=== PATIENT | male | born 1980 | race African-American/Black ===

== ENCOUNTER 2016-03-22 23:38 | Emergency (ER) | payer OTHER ==
[~2016-03-22] VITALS: Ht 170.2 cm; Wt 68.2 kg
[2016-03-22 23:47] VITALS: TEMP 100.4
[2016-03-23 00:46] LABS: BASO # 0.1 (0.0-0.2); BASO % 0.8 % (0.0-2.0); EOS % 0.2 % (0-4.0); GRAN # 3.5 (1.4-6.5); GRAN % 54.4 % (42.2-75.2); HEMOGLOBIN 12.7 g/dl (13.5-18.0); LYMPH # 2.2 (1.2-3.4); LYMPH % 34.2 % (20.0-51.0); MEAN CELL VOLUME 99 fl (80.0-100.0); MEAN CORPUSCULAR HEMOGLOBIN 36 pg (27.0-31.0); MEAN CORPUSCULAR HGB CONC 36 g/dl (33.0-37.0); MEAN PLATELET VOLUME 11.3 fl (7.4-10.4); MONO # 0.6 (0.1-0.6); MONO % 10.1 % (1.7-9.3); PLATELET COUNT 171 K/mm3 (130-400); RED BLOOD COUNT 3.54 M/mm3 (4.20-5.60); REDCELL DISTRIBUTION WIDTH-CV 12.7 % (11.5-14.5); WHITE BLOOD COUNT 6.3 K/mm3 (4.8-10.8)
[2016-03-23 00:48] LABS: INFLUENZA B NEGATIVE
[2016-03-23 01:01] LABS: HEMATOCRIT 34.9 % (42.0-52.0)
[2016-03-23 01:09] LABS: ADJUSTED CALCIUM 9.1 mg/dL (8.4-10.2); ALBUMIN 4.9 gm/dL (3.5-5.0); BILIRUBIN,TOTAL 3.8 mg/dL (0.0-1.0); CALCIUM 9.8 mg/dL (8.4-10.2); CREATININE, serum 0.84 mg/dL (0.66-1.25); POTASSIUM 3.5 mmol/L (3.4-5.0); TOTAL PROTEIN 9.1 gm/dL (6.4-8.2)
[2016-03-23 01:21] LABS: PH 6 (5-8); SQUAMOUS EPITHELIAL 0-2 /hpf; URINE APPEARANCE Hazy; URINE BACTERIA None Seen /hpf; URINE BILIRUBIN Negative (NEGATIVE); URINE BLOOD 1+ (NEGATIVE); URINE COLOR Amber; URINE GLUCOSE Negative (NEGATIVE); URINE KETONE 1+ (NEGATIVE); URINE RBC 0-2 /hpf; URINE WBC 0-2 /hpf
[2016-03-23 01:47] VITALS: BP 144/101; PULSE 93
== END 2016-03-23 01:48 | disposition home or self-care (01) ==
LOC: COL.ER 23:38
PROVIDERS: Family Medicine
DX: R51 Headache (principal); R20.2 Paresthesia of skin; F10.20 Alcohol dependence, uncomplicated; Y90.9 Presence of alcohol in blood, level not specified

== ENCOUNTER 2016-11-17 12:42 | Emergency (ER) | payer OTHER ==
[~2016-11-17] VITALS: Ht 172.7 cm; Wt 80.5 kg
[2016-11-17 12:46] VITALS: BP 124/83; TEMP 98.4
[2016-11-17] MEDS ORDERED: FIORICET 325 MG1 TA1 PO (14:16)
[2016-11-17 14:41] VITALS: PULSE 94
== END 2016-11-17 14:42 | disposition home or self-care (01) ==
LOC: COL.ER 12:42
DX: R51 Headache (principal); V49.9XXA Car occupant (driver) (passenger) injured in unspecified traffic accident, initial encounter
CPT/HCPCS: J1200; J1885